=== PATIENT | female | born 1960 | race Caucasian/White ===

== ENCOUNTER 2022-07-19 08:22 | Emergency (ER) | payer MEDICAID, OTHER ==
[~2022-07-19] VITALS: Ht 157.5 cm; Wt 86.4 kg
[~2022-07-19 08:22] MED LIST: ALPR-624 PO; METH-360 PO; PANT-47 PO; TOPI25TA49 PO; TRAZ150T78 PO; VENL75CA61 PO
[2022-07-19 08:39] VITALS: BP 165/87
[2022-07-19] MEDS ORDERED: NAPR-56 PO (10:32)
[2022-07-19] MEDS ORDERED: PENI250T2 PO (10:32)
== END 2022-07-19 10:45 | disposition home or self-care (01) ==
LOC: ER 08:23
DX: K04.7 Periapical abscess without sinus (principal); K08.89 Other specified disorders of teeth and supporting structures; G89.29 Other chronic pain; Z56.0 Unemployment, unspecified; Z79.2 Long term (current) use of antibiotics; Z79.899 Other long term (current) drug therapy
CPT/HCPCS: 99283

== ENCOUNTER 2025-06-01 08:01 | Emergency (ER) | payer MEDICAID, OTHER ==
[~2025-06-01] VITALS: Ht 157.5 cm; Wt 83.9 kg
[~2025-06-01 08:01] MED LIST changes: +TOPI-255 PO; -TOPI25TA49 PO
[2025-06-01 08:17] VITALS: BP 130/107; PULSE 65; RESP 19; O2SAT 99
[2025-06-01] MEDS ORDERED: AMOX-117 PO (08:51)
--- NOTE | 2025-06-01 08:53 | Physician Documentation ---
History of Present Illness ~ Chief Complaint: Abscess Stated Complaint: ABSCESS TOOTH Time Seen by MD: 08:47 Primary Medical Doctor: NONE HPI This is a 64-year-old female with a known history of poor dentition who presents for evaluation of right lower jaw pain, swelling, that has been present for the last three days without any obvious trigger provocation. Reports subjective f ever and chills yesterday. Attempted to treat it with the [id number] medications without success. Similar to prior dental infections. Denies any difficulty breathing, drooling, denies any difficulty opening her mouth. Denies any other complaints. He continues to smoke, denies any concern for alcohol or illicit substances use. Tetanus Within 5 Years: No (UNKNOWN) Medication Reconciliation Allergies: Coded Allergies: No Known Allergies (Unverified , 06/01/25) Scheduled Alprazolam* (Xanax*), 1 MG PO TID, (Reported) Methocarbamol (Robaxin-750), 1 TABLET PO TID Pantoprazole Sodium (PROTONIX tablet), 1 TABLET PO DAILY Topiramate (Topiramate), 2 TABLET PO BID, (Reported) Trazodone Hcl (Trazodone Hcl), 50 MG PO HS, (Reported) Venlafaxine Hcl (Venlafaxine Hcl Er), 75 MG PO DAILY, (Reported) Past Medical History Past Medical History: Chronic Back Pain Past Surgical History: noncontributory Alcohol Use: None Drug Use: none Lives with: Family Lives In: Home Occupation: unemployed Review of Systems ROS 10 point review of systems was performed and unless noted above in HPI is negative for acute process/complaint. Physical Exam Vital Signs: Temperature: 97.6, Source: Oral, Heart Rate: 65, Respiratory Rate: 19, BP: 130/107, Pulse Oximetry: 99, Weight: 83.900 Oxygen Flow Rate: 0 Physical Exam Physical examination: GENERAL: Awake, alert, oriented, GCS 15, no apparent distress, non-toxic appearing, answers questions, follows commands appropriately. Examined in triage HEENT: Atraumatic, normocephalic, pupils equal, extraocular muscles intact Active gross movements, sclerae anicteric, mucus membranes moist, no stridor. NECK: Midline, no JVD CARDIOVASCULAR: Good skin perfusion without evidence of pallor, mottling. PULMONARY: Nonlabored, symmetric chest rise, no audible wheezing, no accessory muscle use, no respiratory distress, speaking in full sentences. GASTROINTESTINAL: Not distended. NEUROLOGIC: Lucid with normal mental status. Normal facial symmetry. Moves all extremities symmetrically and with purpose. No truncal ataxia. Speech is fluid without evidence of dysarthria or aphasia, no focal deficits appreciated. EXTREMITIES: Acute deformities Skin: warm, dry PSYCHIATRIC: Normal affect, normal insight, normal concentration. Focused exam: [Very poor dentition noted with a multiple missing and fractured teeth, extensive caries. There is swelling and tenderness to palpation without fluctuance to the right lower jaw and mandible. There is a trismus. No drooling. No hot potato voice, no floor of the mouth elevation, no brawny submandibular erythema. There was no pain with flexion or extension of the neck.] Progress Results/Orders Results/Orders Vital Signs 06/01/25 08:17 Temp 97.6 Pulse 65 Resp 19 B/P (MAP) 130/107 Pulse Ox 99 O2 Flow Rate 0 Medical Decision Making Additional information obtaine: old records Findings Facility Status: ED Holds, [facility] process The plan was discussed with the patient, who demonstrates clear understanding of the plan and is in agreement with the plan unless otherwise noted in the chart. All questions have been answered, all concerns were addressed unless otherwise documented. I was available throughout their ED stay for frequent reassessment and questions. Differential Diagnoses (considered and possible or likely): [Dental infection, dental abscess, less likely osteomyelitis of the jaw, clinically not consistent with a Elroy's angina, peritonsillar abscess, retropharyngeal abscess.] ??Differential Diagnoses (considered and unlikely, not requiring evaluation currently): [No evidence of meningitis or encephalitis] [facility] Data Please see [facility] for the following: Independent Historians and external Records Review. Historian: [Patient] Independent Historians: ?[Record review] Medication Management: [Reviewed medication list] Social History and determinants: [Reviewed] Please see the body of the note for the following: Any independent interpretations of ECG, imaging studies. All vitals signs/haemodynamics, ordered tests were independently reviewed and interpreted by myself. Nursing triage complaint and vitals reviewed, additional nursing notes were reviewed as available and I agree unless otherwise noted or documented in contradiction in the chart Vital Signs: Independently reviewed Labs: Independently interpreted Imaging: Independently interpreted Old Medical Records: Independently reviewed, see [facility] for relevant summary and information Pulse Oximetry: [93%] interpreted as [normal on room air] by me Additionally notably showing: [Hemodynamically stable] Tests considered but not ordered include: [Hematologic workup and imaging has been considered but does not appear to be necessary given clinical nature of diagnosis] Social Determinants of Health Impact: Patient was evaluated in [facility], or [facility] [place] to healthcare due to below par ratio of patient to medical providers. [] Comorbid Conditions Impacting Present Evaluation and Care/Treatment: [Poor dentition] Management Discussions with other Healthcare Providers: [None] Treatment and Disposition Medication Management (Given or considered): []. See EMR for details Consideration for Hospitalization/Escalation/Deescalation of Care: Admission for observation has been considered, [however the patient is able to tolerate p.o., their symptoms are controlled, they are able to rely on oral medications, and their chief complaint/diagnosis can be managed on outpatient basis.] ?ED Course:?[No clinical deterioration while in the emergency department. Protects her airway.] ?Shared decision making:?[Patient is hemodynamically stable for discharge home with follow with their primary care provider. [ ] Specific and cautious return precautions provided and discussed with full understanding. Any incidental findings were also discussed and follow up recommendations given. [] All questions answered. Patient/family were able to verbalize back return precautions. Patient/family agree to plan. Copies of imaging and laboratory studies were provided.] Code status:?FULL Please see the full Electronic Medical Record for full details of nursing documentation, medications list, other records of complete past medical history and conditions, vital signs, laboratory studies, and any radiologic study interpretations by radiologists. Portions of this note were completed using [employer] dictation software and as a result there may exist minor errors in spelling. I have reviewed elements of past family and social history and agree as included in note. Differential Dx:Considerations: Include: Other (See main body of the note) Departure Disposition: 01 HOME / SELF CARE / HOMELESS Impression: Primary Impression: Dental infection Condition: Stable Discharge Instructions: Dental Mouthguards for Sports Referrals: NO PRIMARY CARE PROVIDER (PCP) Prescriptions Amox Tr/Potassium Clavulanate (Augmentin 875-125 Tablet) 1 Each Tablet 1 TAB PO Q12H for 10 Days, #20 TAB Prov: JEFF DE JESUS DO 06/01/25 Education Educated: Patient Educated regarding: diagnosis, treatment, prognosis, need for follow up Signature Scribe Signature: No scribe Attestation: Date: Jun 01, 2025 Time: 08:52 This note accurately reflects clinical decisions, work performed by myself, DO NEAL Winchester NICHOLAS M DO Jun 01, 2025 08:52
[2025-06-01 09:23] VITALS: TEMP 97.6
== END 2025-06-01 09:29 | disposition home or self-care (01) ==
LOC: ER 08:02
DX: K04.7 Periapical abscess without sinus (principal); Z79.899 Other long term (current) drug therapy
CPT/HCPCS: 99283